=== PATIENT | female | born 1985 | race African-American/Black ===

== ENCOUNTER 2016-11-17 08:33 | Emergency (ER) | payer SELFPAY ==
[~2016-11-17] VITALS: Ht 160 cm; Wt 90.0 kg
[~2016-11-17 08:33] MED LIST: CETI10 PO; DULE100A PO; FLUT1SPR9 NASAL; HYDR50 PO
[2016-11-17 08:34] VITALS: BP 133/86; PULSE 86; RESP 15; TEMP 98.2; O2SAT 98
[2016-11-17] MEDS ORDERED: CETI10CH CHEW (08:43)
--- NOTE | 2016-11-17 09:01 | PD ---
HPI Chief Complaint: Eye Problems/Injury Time Seen by Provider: 09:01 Travel History International Travel<30 days: No Contact w/Intl Traveler<30days: No Traveled to known affect area: No History of Present Illness HPI 31-year-old female presents emergency Department with complaint of her contact lens stuck in her left eye. She has had her contacts in for 2 days but tried to remove it at approximately 4 AM this morning and was unable to get it out. Denies change in vision. Reports clear drainage. Denies fever, vomiting. Has no medical complaints. No other modifying factors or associated signs and symptoms. PFSH Past Medical History Asthma: Yes Blood Disorders: No Anxiety: No Cancer: No Cardiovascular Problems: No Chemotherapy: No Chest Pain: Yes Diabetes: No Diminished Hearing: No Endocrine: No Gastrointestinal Disorders: No Genitourinary: No Headaches: Yes Immune Disorder: No Musculoskeletal: Yes (HX FX AND TORN LIGAMENTS BILATERAL ANKLES) Neurologic: Yes Psychiatric: No Reproductive: Yes Respiratory: Yes (ASTHMA) Immunizations Current: No Migraines: Yes Radiation Therapy: No Tetanus Vaccination: < 5 Years ?: Not LMP: 3 weeks ago Menopausal: No : 2 Para: 1 Miscarriage: 1 : 0 Past Surgical History AICD: No Arteriovenous Shunt: No Cardiac Surgery: No Section: Yes (X1) Gynecologic Surgery: Yes Insulin Pump: No Joint Replacement: No Pacemaker: No Thoracic Surgery: No Other Surgery: No Social History Alcohol Use: Yes (occasion) Tobacco Use: Yes Substance Use: No Allergies-Medications (Allergen,Severity, Reaction): Coded Allergies: Dilaudid (Verified Allergy, Severe, 11/17/16) Shellfish (Verified Allergy, Severe, 11/17/16) Lortab (Verified Allergy, Mild, Itching, 11/17/16) *MDRO Multi-Drug Resistant Organism (Verified Adverse Reaction, Unknown, ) MRSA (chest wound) - 06/19/2015 Uncoded Allergies: ARTIFICIAL SWEETNERS (Allergy, Severe, SWELLING, 03/31/10) Reported Meds & Prescriptions Reported Meds & Active Scripts Active Polytrim Opth Drops (Polymyxin/Trimethoprim Sulfate) 10,000-0.1 Unit/Ml-% Soln 1 Drop LEFT EYE Q6HR 7 Days Reported Cetirizine (Cetirizine HCl) 10 Mg Chew 10 Mg CHEW DAILY Review of Systems Except as stated in HPI: all other systems reviewed are Neg Physical Exam Narrative GENERAL: Well-nourished, well-developed patient, in no acute distress SKIN: Warm and dry. HEAD: Atraumatic. Normocephalic. EYES: Pupils equal and round at 3 mm with brisk reaction. PERRLA. EOMI. Left lid eversion with no foreign body noted. Left eye with scleral erythema and mild lid edema. No orbital tenderness, erythema or cellulitis. Left eye with photophobia. No consensual photophobia. No scleral icterus. Purulent drainage noted. Orozco lamp exam reveals normal; no contact lens noted in the eye. ENT: Mucosa pink and moist. Airway patent. NECK: Trachea midline. CARDIOVASCULAR: Regular rate. RESPIRATORY: No accessory muscle use. GASTROINTESTINAL: Rounded. NEUROLOGICAL: Awake and alert. Oriented 3. No obvious cranial nerve deficits. Motor grossly within normal limits. Normal speech. PSYCHIATRIC: Appropriate mood and affect; insight and judgment normal. Data Data Last Documented VS Vital Signs Date Time Temp Pulse Resp B/P Pulse Ox O2 Delivery O2 Flow Rate FiO2 11/17/16 08:34 98.2 86 15 133/86 98 Orders Proparacaine 0.5% Opth Soln (Alcaine 0.5 (11/17/16 09:15) MDM Medical Decision Making Medical Screen Exam Complete: Yes Emergency Medical Condition: Yes Medical Record Reviewed: Yes Differential Diagnosis Contact lens, corneal abrasion, conjunctivitis Narrative Course 31-year-old female presents again she has a contact lens in her left eye. With slit lamp exam is normal and I did not find a retained contact lens in the eye. There are no corneal abrasions. The patient verified that she may have irritated the eye by continuously trying to get the contact lens out when it was actually out and she may have dropped on the floor. The patient does have scleral erythema, mild lid edema, and purulent drainage noted to the left eye. Suspecting conjunctivitis. Polytrim eye drops prescribed for home. Patient verbalizes understanding and agreement with treatment plan. Patient is medically cleared and stable for discharge. Discussed reasons to return to the emergency department. Instructed patient to follow up with primary care provider. Patient agrees with treatment plan. The patients vital signs are stable and the patient is stable for outpatient follow-up and treatment. Patient discharged home, stable and in no acute distress. Diagnosis Primary Impression: Irritation of left eye Referrals: Primary Care Physician Patient Instructions: Conjunctivitis (ED), General Instructions Departure Forms: Tests/Procedures, Work Release Enter return to work date: Nov 18, 2016 Additional Instructions: Conjunctivitis is contagious Use antibiotic eye drops as prescribed Apply warm or cool compresses to both eyes for a few minutes several times daily to minimize irritation Avoid triggers, such as allergens, that may irritate your eyes Wash your hands frequently Do not share washcloths, towels, pillows, or any other material that has touched your eyes with any other household members Follow-up with your primary care provider Follow-up with ophthalmology as needed Return to the emergency department immediately with worsening of symptoms Med/Other Pt SpecificInfo: Prescription(s) given Scripts Polymyxin B-Trimethoprim Opth Drops (Polytrim Opth Drops)10,000-0.1 Unit/Ml-% Soln1 Drop LEFT EYE Q6HR 7 Days Ref 0 Prov:Kelley Flower 11/17/16 Disposition: 01 DISCHARGE HOME Condition: Stable Kelley Flower Nov 17, 2016 09:01
[2016-11-17] MEDS ORDERED: PROPARACAINE HCL 0.5% OPHT SOLN 15 ML BTL LEFT EYE ONE (09:15)
[2016-11-17] MEDS ORDERED: POLY10O LEFT EYE (09:53)
== END 2016-11-17 10:27 | disposition home or self-care (01) ==
LOC: NEPD 08:33
DX: H57.8 Other specified disorders of eye and adnexa (principal); Z72.0 Tobacco use; Z87.09 Personal history of other diseases of the respiratory system; Z87.39 Personal history of other diseases of the musculoskeletal system and connective tissue; Z86.69 Personal history of other diseases of the nervous system and sense organs
CPT/HCPCS: 99283

== ENCOUNTER 2016-12-12 09:52 | Emergency (ER) | payer SELFPAY ==
[~2016-12-12] VITALS: Ht 160 cm; Wt 88.0 kg
[~2016-12-12 09:52] MED LIST changes: -CETI10 PO; +CETI10CH CHEW; -DULE100A PO; -FLUT1SPR9 NASAL; -HYDR50 PO; +POLY10O LEFT EYE
[2016-12-12 09:54] VITALS: BP 117/75; PULSE 78; RESP 20; TEMP 98.5; O2SAT 100
--- NOTE | 2016-12-12 10:51 | RADRPT ---
EXAM DATE/TIME: 12/12/2016 10:31 [facility] COMPARISON: No previous studies available for comparison. INDICATIONS : Chest pain, short of breath. MEDICAL HISTORY : asthma SURGICAL HISTORY : None. ENCOUNTER: Initial ACUITY: 1 week PAIN SCORE: 9/10 LOCATION: Bilateral chest FINDINGS: PA and lateral views of the chest demonstrate the lungs to be symmetrically aerated without evidence of mass, infiltrate or effusion. The cardiomediastinal contours are unremarkable. Osseous structure s are intact. CONCLUSION: Normal examination for a patient of this age. Jose Francisco Toney MD on December 12, 2016 at 10:48 Board Certified Radiologist. This report was verified electronically.
--- NOTE | 2016-12-12 11:44 | PD ---
HPI Chief Complaint: Chest Pain Time Seen by Provider: 11:28 Travel History International Travel<30 days: No Contact w/Intl Traveler<30days: No Traveled to known affect area: No History of Present Illness HPI The patient was seen and examined in the presence of the nurse. This patient complains of some pain in her left upper chest. Duration one week. It's worse when she moves or presses it. She also has hoarse laryngitic type voice. Denies fever or shortness of breath. Symptoms severity is mild to moderate PFSH Past Medical History Asthma: Yes Blood Disorders: No Anxiety: No Cancer: No Cardiovascular Problems: No Chemotherapy: No Chest Pain: Yes Diabetes: No Diminished Hearing: No Endocrine: No Gastrointestinal Disorders: No Genitourinary: No Headaches: Yes Immune Disorder: No Musculoskeletal: Yes (HX FX AND TORN LIGAMENTS BILATERAL ANKLES) Neurologic: Yes Psychiatric: No Reproductive: Yes Respiratory: Yes (ASTHMA) Immunizations Current: No Migraines: Yes Radiation Therapy: No ?: Unknown Menopausal: No : 2 Para: 1 Miscarriage: 1 : 0 Past Surgical History AICD: No Arteriovenous Shunt: No Cardiac Surgery: No Section: Yes (X1) Gynecologic Surgery: Yes Insulin Pump: No Joint Replacement: No Pacemaker: No Thoracic Surgery: No Other Surgery: No Social History Alcohol Use: Yes Tobacco Use: Yes Substance Use: No Allergies-Medications (Allergen,Severity, Reaction): Coded Allergies: Dilaudid (Verified Allergy, Severe, 12/12/16) Shellfish (Verified Allergy, Severe, 12/12/16) Lortab (Verified Allergy, Mild, Itching, 12/12/16) *MDRO Multi-Drug Resistant Organism (Verified Adverse Reaction, Unknown, ) MRSA (chest wound) - 06/19/2015 Uncoded Allergies: ARTIFICIAL SWEETNERS (Allergy, Severe, SWELLING, 03/31/10) Reported Meds & Prescriptions Reported Meds & Active Scripts Active Polytrim Opth Drops (Polymyxin/Trimethoprim Sulfate) 10,000-0.1 Unit/Ml-% Soln 1 Drop LEFT EYE Q6HR 7 Days Reported Cetirizine (Cetirizine HCl) 10 Mg Chew 10 Mg CHEW DAILY Review of Systems General / Constitutional: No: Fever HENT: No: Headaches Cardiovascular: Positive: Chest Pain or Discomfort Gastrointestinal: No: Vomiting Physical Exam Narrative GENERAL: Well-nourished, well-developed patient in no apparent distress. Has laryngitis voice SKIN: Focused skin assessment reveals no rash and nodules. Skin is Warm and dry. HEAD: Atraumatic. Normocephalic. EYES: Pupils equal and round. No scleral icterus. No injection or drainage. ENT: No nasal bleeding or discharge. Mucous membranes pink and moist. Throat clear NECK: Trachea midline. No JVD. CARDIOVASCULAR: Regular rate and rhythm. No murmur appreciated. RESPIRATORY: No accessory muscle use. Clear to auscultation. Breath sounds equal bilaterally. GASTROINTESTINAL: Abdomen soft, non-tender, nondistended. Hepatic and splenic margins not palpable. MUSCULOSKELETAL: No obvious deformities. No clubbing. No cyanosis. No edema. Readily reproducible chest wall tenderness to palpation in the left upper chest NEUROLOGICAL: Awake and alert. No obvious cranial nerve deficits. Motor grossly within normal limits. Normal speech. PSYCHIATRIC: Appropriate mood and affect; insight and judgment normal. Data Data Last Documented VS Vital Signs Date Time Temp Pulse Resp B/P Pulse Ox O2 Delivery O2 Flow Rate FiO2 12/12/16 11:25 98 Room Air 12/12/16 09:54 98.5 78 20 117/75 Orders Electrocardiogram (12/12/16 10:03) Ed Urine Pregnancytest Poc (12/12/16 10:04) Chest, Pa & Lat (12/12/16 10:03) MDM Medical Decision Making Medical Screen Exam Complete: Yes Emergency Medical Condition: Yes Medical Record Reviewed: Yes Differential Diagnosis Musculoskeletal chest pain, laryngitis, URI Narrative Course I have reviewed the patient's electronic medical record. I reviewed her EKG which is normal I reviewed her chest x-ray which is normal Presentation is consistent with muscular skeletal chest pain. Will not require further inpatient evaluation. Her laryngitis suggest viral etiology and should resolve without treatment. We discussed vocal rest. Diagnosis Primary Impression: Musculoskeletal chest pain Additional Impression: Laryngitis, acute Additional Instructions: The patient was advised to follow up with their physician and return if they worsen. Med/Other Pt SpecificInfo: Other Disposition: 01 DISCHARGE HOME Condition: Stable Rocky Richardson MD Dec 12, 2016 11:44
[2016-12-12 11:53] VITALS: BP 128/62
--- NOTE | 2016-12-12 18:07 | EKG ---
Date Performed: 12/12/2016 Time Performed: 10:07:24 PTAGE: 31 years EKG: Sinus rhythm NORMAL ECG PREVIOUS TRACING : 06/25/2013 20.01 Compared to prior tracing no significant change DOCTOR: Dipika Moody Interpretating Date/Time 12/12/2016 18:06:18
== END 2016-12-12 12:18 | disposition home or self-care (01) ==
LOC: NEPD 09:52
DX: R07.9 Chest pain, unspecified (principal); R07.89 Other chest pain; J04.0 Acute laryngitis; Z72.0 Tobacco use; R06.02 Shortness of breath
CPT/HCPCS: 71020; 84703; 93005